=== PATIENT | male | born 1940 | race Caucasian/White ===

== ENCOUNTER 2025-01-10 13:13 | Emergency (ER) | payer MEDICARE, BC, SELFPAY ==
[2025-01-10] VITALS (32 sets, daily range): BP systolic 113–141; BP diastolic 69–89; PULSE 55–69; RESP 9–15; TEMP 36.2; O2SAT 88–100; BMI 21.7
--- OUTSIDE RECORDS SUMMARY | 2025-01-10 13:15 | XMS_ITS | Clinical Summary ---
Author Organization [facility] Address [address] [address] Phone Care Team Providers Care Straightener Hand Name Role Phone Krystian Viramontes MD Primary Care Provider [phone] Allergies No known active allergies Medications losartan (Cozaar) 50 MG tablet Take 50 mg by mouth one time a day. Active Multiple Vitamin (MULTI VITAMIN DAILY OR) Take by mouth. Activ e Magnesium Citrate 200 MG Tablet Take 250 mg by mouth. Active atorvaSTATin (Lipitor) 80 MG tablet Take 80 mg by mouth one time a day. Active ALBUTEROL SULFATE IN Inhale 90 mcg into the lungs. Active tamsulosin (Flomax) 0.4 MG 24 hour capsule Take 0.4 mg by mouth one time a day. Capsules should be swallowed whole; do not crush, chew, or open Active ipratropium-alb uterol (DUO-NEB) 0.5-2.5 (3) MG/3ML Solution Inhale 3 mL into the lungs two times a day. Active loratadine (Claritin) 10 MG capsule Take 10 mg by mouth as needed for Allergies. Take on an empty stomach. Active fluticasone furoate (Veramyst) 27.5 MCG/SPRAY nasal spray Instill 1 [place] nasally as needed for Rhinitis. Shake well before use; administer to both nostrils. Active montelukast (Singulair) 10 MG tablet Take 1 Tablet by mouth every evening. 31 Tablet 5 3 Active fluticasone-mario anterol (Breo Ellipta) inhaler 200-25 mcg/dose Inhale 1 Inhalation into the lungs one time a day. Rinse mouth after each use. 180 Each 3 Active ASPIRIN 81 OR Take 81 mg by mouth one time a day. 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 Legal Sex Male 3:18 PM SECURITY INSTALLATION TECHNICIAN Gender Identity Male 06/06/2022 1:44 PM SECURITY INSTALLATION TECHNICIAN Sexual Orientation Not on file Obstetrics History Last Filed Vital Signs Vital Sign Reading Time Taken Comments Blood Pressure 138/83 10/09/2023 12:30 PM CDT Pulse 80 10/09/2023 12:30 PM CDT Temperature 36.4 C (97.6 F) 10/09/2023 12:30 PM CDT Respiratory Rate 16 10/09/2023 12:30 PM CDT Oxygen Saturation 100% 10/09/2023 12:30 PM CDT Inhaled Oxygen Concentration - - Weight 85.3 kg (188 lb) 08/04/2022 2:42 PM SECURITY INSTALLATION TECHNICIAN Height 182.9 cm (6') 08/04/2022 2:42 PM SECURITY INSTALLATION TECHNICIAN Body Mass Index 25.5 08/04/2022 2:42 PM SECURITY INSTALLATION TECHNICIAN Plan of Treatment Health Maintenance Due Date Last Done Comments MEDICARE AWV 1940 PERTUSSIS (Standing Order) 1958 Pneumococcal Vaccine: 50+ yrs (Standing Order) (1 of 2 - PCV) 1958 Shingrix (Zoster recombinant) vaccine (Standing Order) (1 of 2) 1989 RSV Vaccination (60+ yrs) (Abrysvo/Arexvy) (1 - 1-dose 75+ series) 2014 COVID-19 Vaccine ( season) 2024 03/31/2023, 03/17/2022, 09/23/2021, Additional history exists TETANUS (Standing Order) 10/08/2033 10/09/2023 HPV Vaccine (Standing Order) Aged Out No longer eligible based on patient's age to complete this topic Hepatitis B Vaccine (Standing Order) Aged Out No longer eligible based on patient's age to complete this topic Insurance MEDICARE PART A & B [facility] OTHER [facility] MEDICARE PART A & B [place] Care Teams Straightener Hand Relationship Specialty Start Date End Date Krystian Viramontes MD [address] [phone] PCP - General Family Medicine 06/03/22
--- OUTSIDE RECORDS SUMMARY | 2025-01-10 13:15 | XMS_ITS | Clinical Summary ---
Author Organization [facility] Address [address] [place] [address] Care Team Providers Care Legal Document Specialist Name Role Phone Clinic, No Pcp Or Unavailable Unavailable Krystian Viramontes MD Primary Care Provider [phone] Allergies Active Allergy Reactions Criticality Noted Date Comments Beta-Blockers (Beta-Adrenergic Blocking Agts) Insomnia Comment: , Description: Sulfa (Sulfonamide Antibiotics) Other - Describe In Comment Field,Rash 05/16/2009 Comment: , Description: Medications multivitamin capsule Take 1 capsule by mouth once daily. 0 020 Active albuterol HFA (PRO-AIR; VENTOLIN; PROVENTIL) 90 mcg/actuation inhalerIndications:C hronic obstructive pulmonary disease, unspecified COPD type (HC) Inhale 2 Puffs by mouth every 4 hours if needed for Shortness Of Breath. 3 Each 3 024 Active albuterol-ipratropiu m (DUONEB) (2.5-0.5 mg) in 3 mL NEBULIZATION solutionIndications: Chronic obstructive pulmonary disease, unspecified COPD type (HC) Inhale 3 mL via a nebulizer three times daily. 270 mL 3 024 Active atorvastatin (LIPITOR) 80 mg tabletIndications:HT N (hypertension),Heart failure, unspecified HF chronicity, unspecified heart failure type (HC),Hyperlipidemia, unspecified hyperlipidemia type Take 1 Tablet (80 mg) by mouth once daily with evening meal. 90 Tablet 3 024 Active fluticasone (50 mcg per actuation) nasal solution (FLONASE)Indications :Severe persistent allergic asthma (HC) Inhale 1 Beason in both nostrils once daily. 16 g 11 Active fluticasone furoate-vilanteroL (Breo Ellipta) 200-25 mcg/dose inhalation powdererIndications: Heart failure, unspecified HF chronicity, unspecified heart failure type (HC) Inhale 1 Puff by mouth once daily. 180 Each 3 Active furosemide 40 mg tablet Take 40 mg by mouth once daily in the morning. Takes only as needed and takes potassium with it. Active POTASSIUM ORAL Take by mouth. Takes only as needed when taking Furosemide Active dexAMETHasone 2 mg tabletIndications:Wa ldenstrom's macroglobulinemia (HC) Take 1 Tablet (2 mg) by mouth once daily with a meal. 30 Tablet Active zanubrutinib (Brukinsa) 80 mg capsuleIndications:W aldenstrom's macroglobulinemia (HC) Take 3 Capsules (240 mg) by mouth once daily. 90 Capsule 3 Active Walker - 4 wheelsIndications:Fr equent falls,Weakness generalized Seated 4 wheel walker for weakness and frequent falls. For home use. Length of need: 99. 1 Each Active chlorhexidine (PERIDEX) 0.12 % solution 2024 Disconti nued(*Pa tient states no longer taking) clopidogreL (Plavix) 75 mg tabletIndications:Co ronary artery disease involving tejon coronary artery of tejon heart without angina pectoris Take 1 Tablet (75 mg) by mouth once daily. 90 Tablet 3 024 2024 Disconti nued(*Pa tient states no longer taking) cholecalciferol, vitamin D3, (VITAMIN D3 ORAL) Take by mouth. 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 Max acetaminophen dose: 4000mg in 24 hrs. 30 Tablet 2 025 2024 Disconti nued(*Pa tient states no longer taking) gabapentin 100 mg capsuleIndications:L umbar radiculopathy Take 2 Capsules (200 mg) by mouth three times daily. 180 Capsule 2 025 2024 Disconti nued(*George webber states no longer taking) zanubrutinib (Brukinsa) 80 mg capsuleIndications:W aldenstrom's macroglobulinemia (HC) Take 4 Capsules (320 mg) by mouth once daily. 120 Capsule 3 025 2024 Disconti nued(Reo rder (E-cance l not sent)) mirtazapine 7.5 mg tabletIndications:Wa ldenstrom's macroglobulinemia (HC) Take 1 Tablet (7.5 mg) by mouth at bedtime. 30 Tablet 3 025 2024 Disconti nued(*Pa lawanda states no longer taking) Walker - 4 wheelsIndications:Fr equent falls,Weakness generalized Seated 4 wheel walker for weakness and frequent falls. For home use. Length of need: 99. 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 From Oncology note: 09/11/2024 SPEP with a biclonal gammopathy with a large monoclonal peak 2.76 g/dL in the beta region and a small monoclonal peak 0.09 g/dL in the beta region. SIFE with complete IgM kappa and complete IgG lambda monoclonal proteins. IgM elevated 1,329.12, IgG/IgA low. SFLC kappa 15.10 / lambda 0.84 = 17.98 K:L ratio. LDH normal. BNP elevated 1028. 09/20/2024 bone marrow biopsy with a CD5-/CD10-/CD79b+ kappa light chain restricted favoring lymphoplasmacytic lymphoma, 70-80% cellularity with ~80% bone marrow involvement by lymphoma. Cytogenetics and MYD 88 pending. No aberrant plasma cells detected. No morphologic or flow cytometric evidence of of previously documented CLL. 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 01/27/2021 Heart failure 06/17/2020 Bronchitis, not specified as acute or chronic Chronic sinusitis Cardiomyopathy Waldenstrom macroglobulinemia Lymphoma Resolved Problems Problem Noted Date Diagnosed Date Resolved Date Cold agglutinin disease 06/30/202312/05 Encounters Date Type Department Care Team Description 01/10/2025 Nurse Triage [facility] [address] [place] [address] Krystian Viramontes MD Diarrhea 12/28/2024 3:05 PM CDT Office Visit [facility] [address] [place] [address] Bhavin Pagan MD Establish Care (Medication Management/Would like order/prescription for a walker/Has been having several falls (end of September to middle of November) had 13 falls. No falls since. Gets lightheaded and dizzy before he fell. /Can't walk further than 20-30 feet/Has no energy ) 12/28/2024 Travel 12/26/2024 Travel 12/24/2024 Telephone [facility] [address] [place] [address] Mireya Herrera MD Care Coordination (Lab Orders) 12/21/2024 Refill [facility] [address] [place] [address] Mireya Herrera MD Refill Request 12/20/2024 12:30 PM CDT Office Visit [facility] [address] [place] [address] Mireya Herrera MD Cancer (CLL) 12/20/2024 Travel 12/17/2024 4:00 PM CDT Orders Only [facility] [address] [place] [address] Lab, [place] [facility] 12/17/2024 Travel 12/10/2024 Telephone [facility] [address] [place] [address] Mireya Herrera MD Care Coordination (Lab orders) 11/29/2024 9:00 AM CDT Office Visit [facility] [address] [place] [address] Mireya Herrera MD Cancer (Waldenstrom's Macroglobulinemia) 11/29/2024 Travel 11/27/2024 Travel 11/22/[address] [address] Mireya Herrera MD Care Coordination 11/15/2024 3:00 PM CDT Office Visit [address] [address] Mireya Herrera MD Hematologic Disorder (Waldenstrom's macroglobulinemia) 11/15/2024 Travel 11/11/2024 Travel 11/07/2024 11:30 AM CDT Orders Only [facility] [id number] [place] [id number] Lab, [facility] 11/07/2024 10:30 AM CDT Office Visit [address] [address] Marta Seth DPM Toenail (Jc toenail trim) 11/07/2024 Travel 11/04/2024 Travel 11/01/2024 2:30 PM CDT Office Visit [address] [address] Mireya Herrera MD Cancer (Waldenstrom's macroglobulinemia) 10/31/2024 Travel 10/25/2024 11:39 AM CDT - 10/25/2024 2:21 PM CDT Emergency [facility] [address] [place] [address] Yared Morton PA Lightheadedness (Primary Dx); Waldenstrom's disease (HC) Discharge Disposition: Home Self Care 10/24/2024 Telephone [facility] [address] [place] [address] Mireya Herrera MD Concerns 10/18/2024 2:00 PM CDT Office Visit [facility] [address] [place] [address] Mireya Herrera MD 10/18/2024 11:45 AM CDT Office Visit [facility] [address] [place] [address] Beto Durant MD Heart Problem (6 WEEK F/U) 10/18/2024 Travel 10/17/2024 Travel 10/13/2024 Travel from Last 3 Months Immunizations Immunization Administration Dates Next Due COVID-19 VACCINE COMIRNATY ( PFIZER-BIONTECH 30MCG/0.3ML) 12YO+ PFS 04/12/2024 COVID-19 vaccine (Moderna 10 0mcg/0.5mL) PF, MDV 03/11/2021,09/04/2020,08/06/2020 COVID-19 vaccine (Moderna 50 mcg/0.5mL) 12YO+ BIVALENT PF, MDV 03/17/2022 COVID-19 vaccine (Moderna Ezequiel maria antonia 50mcg/0.25mL) PF, MDV 09/23/2021 Influenza RIV4 (Age 18+ Years) PRESERV FREE 03/06,03/09/2021,03/06/2020 Influenza, High-dose Inactivated 03/14/2024 Influenza, High-dose Quadriv alent Inactivated 03/31/2023 Pneumococcal Poly,23-Valent (Pneumovax) 10/10/19 21 Pneumococcal conj 13-Valent (Prevnar 13) 017 Td, Preservative Free (age >= 7 Years) Tdap 10/09/2023 Tdap, Unspecified 08/03/2016 Zoster (Shingrix-RZV, recombinant) 06/04/2024, Zoster, Unspecified Formulation 08/26/2008 Family History Medical History Relation Name Comments Heart Disease Father Arthritis Mother Asthma Paternal Grandmother Diabetes Sister Hypertension Sister Relation Name Status Comments Father Mother Paternal Grandmother Sister Social History Tobacco Use Types Packs/Day Years Used Date Smoking Tobacco: Never Smokeless Tobacco: Never Tobacco Cessation:Counseling Given: Not Answered Alcohol Use Standard Drinks/Week Comments Not Currently 0 (1 standard drink = 0.6 oz pur e alcohol) 1 beer monthly PHQ-2 Answer Date Recorded PHQ-2 TOTAL SCORE 2 01/30/2024 Social Connections Answer Date Recorded Do you often feel lonely or isolated from those around you? 0 05/03/2024 Financial Resource Strain Answer Date R ecorded Difficulty of Paying Living Expenses 3 05/04/2024 Difficulty of Paying Living Expenses Not on file 05/04/2024 Food Insecurity Answer Date Recorded Do you worry your food will run out before you are able to buy more? 1 05/03/2024 Transportation Needs Answer Date Record ed Does lack of transportation keep you from medica l appointments? 1 05/03/2024 Does lack of transportation keep you from work, meetings or getting things that you need? 1 05/03/2024 Housing Stability Answer Date Recorded What is your housing situation today? 1 05/03/2024 Interpersonal Safety Answer Date Record ed Are you being hit, kicked, p ushed or yelled at (see row info)? No 10/25/2024 Interpersonal Safety Abuse 12 - 18 Not on file 10/25/2024 Interpersonal Safety Ambulatory Vulnerability No t on file 10/25/2024 Utilities Answer Date Recorded Do you have trouble paying f or utilities (for example, heat, electricity, water, phone)? 1 05/03/2024 Sex and Gender Information Value Date Recorded Sex Assigned at Not on file Legal Sex Male 6:16 AM CORPORATE DIRECTOR Gender Identity Not on file Sexual Orientation Not on file Occupation Industry Job Start Date Job End Date retired Not on file Not on file Not on file Obstetrics History Last Filed Vital Signs Vital Sign Reading Time Taken Comments Blood Pressure 114/70 12/28/2024 3:16 PM CDT Pulse 63 12/28/2024 3:16 PM CDT Temperature 36.4 C (97.5 F) 11/15/2024 3:01 PM CDT Respiratory Rate 20 11/15/2024 3:01 PM CDT Oxygen Saturation 100% 12/28/2024 3:16 PM CDT Inhaled Oxygen Concentration - - Weight 80.7 kg (178 lb) 10/25/2024 10:31 AM CDT Height 182.9 cm (6') 10/25/2024 10:31 AM CDT Body Mass Index 24.14 10/25/2024 10:31 AM CDT Plan of Treatment Upcoming Encounters Date Type Department Care Team (Late st Contact Info) Description 01/17/2025 2:30 PM CDT Office Visit [facility] [address] [place], [place] [id number] Mireya Herrera MD [address] [place] [address] 03/18/2025 10:30 AM CDT Orders Only [address] [address] Lab, [facility] 03/18/2025 11:00 AM CDT Office Visit [address] [phone] Sierra Dozier, PHYSICIAN COMPENSATION ANALYST [address] [place], [place] [phone] Health Maintenance Due Date Last Done Comments RSV vaccine for adults or (1 - 1-dose 75+ series) 2014 COVID-19 vaccine series (8 - Moderna risk season) 2024 04/12/2024, 03/31/2023, 03/17/2022, Additional history exists Depression screening for age 12+ 01/29/2025 01/30/2024, 03/02/2022, 12/10/2020 Medicare Wellness for age 65+ 01/30/2025 01/30/2024 Influenza Vaccine (#1) 2025 , 03/17/2022, 03/09/2021, Additional history exists BMI (ht and wt on same day) for age 18+ 09/20/2025 09/20/2024, 04/12/2024, 03/14/2024, Additional history exists Tetanus booster 10/08/2033 10/09/2023, 05/0 10/2023, 08/03/2016 Pneumococcal series for age 50+ Completed 10/09/2020, 08/03/2016 Zoster (shingles) series for age 50+ Completed 06/04/2024, 03/14/2024 Hepatitis B series for 19+ Aged Out N o longer eligible based on patient's age to complete this topic Procedures Procedure Name Priority Date/Time Associated Diagnosis Comments CBC WITH AUTO DIFFERENTIAL Routine 12/17/2024 4:14 PM CDT Waldenstrom's macroglobulinemia (HC) COMP METABOLIC PANEL Routine 12/17/2024 4:14 PM CDT Waldenstrom's macroglobulinemia (HC) IMMUNOGLOBULINS,IGG/ A/M Routine 12/17/2024 4:14 PM CDT Waldenstrom's macroglobulinemia (HC) VISCOSITY BLOOD Routine 12/17/2024 4:14 PM CDT Waldenstrom's macroglobulinemia (HC) LD,TOTAL Routine 12/17/2024 4:14 PM CDT Waldenstrom's macroglobulinemia (HC) ELP AND FREE LIGHT CHAINS W REFLEX, BLOOD Routine 12/17/2024 4:13 PM CDT Waldenstrom's macroglobulinemia (HC) IMMUNOFIXATION,SERUM Routine 12/17/2024 4:13 PM CDT Abnormal 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) IMMUNOFIXATION,SERUM Routine 11/07/2024 10:25 AM CDT Abnormal 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) TYPE & SCREEN STAT 10/25/2024 12:13 PM CDT CBC WITH AUTO DIFFERENTIAL STAT 10/25/2024 12:10 PM CDT PRO-BNP STAT 10/25/2024 12:10 PM CDT URIC ACID STAT 10/25/2024 12:10 PM CDT PHOSPHORUS STAT 10/25/2024 12:10 PM CDT PROCALCITONIN STAT 10/25/2024 12:10 PM CDT BASIC METABOLIC PANEL STAT 10/25/2024 12:10 PM CDT CBC WITH AUTO DIFFERENTIAL STAT 10/25/2024 12:10 PM CDT EKG 12 LEAD STAT 10/25/2024 11:59 AM CDT from Last 3 Months Results * VISCOSITY BLOOD (12/17/2024 4:14 PM CDT) VISCOSITY, SERUM 1.9 1.5 - 1.9 Relative to H2O [facility], Blood BLOOD SPECIMEN / Unknown 12/17/2024 4:14 PM CDT 12/17/2024 4:14 PM CDT Mireya Herrera MD SEND OUTS Final Result [facility] [address] [place] [address], [facility], [address] [place] [address] * (ABNORMAL) IMMUNOGLOBULINS,IGG/A/M (12/17/2024 4:14 PM CDT) [facility] IMMUNOGLOBULIN A 21(L) 70 - 320 mg/dL [facility] IMMUNOGLOBULIN G 466(L) 600 - 1,540 mg/dL [facility] IMMUNOGLOBULIN M 2,038(H) 50 - 300 mg/dL [facility] Blood BLOOD SPECIMEN / Unknown 12/17/2024 4:14 PM CDT 12/17/2024 4:14 PM CDT Mireya Herrera MD CHEMISTRY Final Result [facility] [address] [place] [address], [place] [phone] [facility] [address] [place] [address] * LD,TOTAL (12/17/2024 4:14 PM CDT) [facility] LD 178 120 - 250 U/L [facility] Blood BLOOD SPECIMEN / Unknown 12/17/2024 4:14 PM CDT 12/17/2024 4:14 PM CDT Mireya Herrera MD CHEMISTRY Final Result [facility] [address] [place] [address], [place] [phone] [facility] [address] [place] [address] * (ABNORMAL) CBC AND DIFFERENTIAL (12/17/2024 4:14 PM CDT) [facility] WHITE BLOOD CELL COUNT 6.1 3.8 - 10.8 Thousand/u L [facility] RED BLOOD CELL COUNT 3.80(L) 4.20 - 5.80 Million/uL [facility] HEMOGLOBIN 10.9(L) 13.2 - 17.1 g/dL [facility] HEMATOCRIT 33.8(L) 38.5 - 50.0 % [facility] MCV 88.9 80.0 - 100.0 fL [facility] MCH 28.7 27.0 - 33.0 pg [facility] MCHC 32.2 32.0 - 36.0 g/dL [facility] Comment: For adults, a slight decrease in the calculated MCHC value (in the range of 30 to 32 g/dL) is most likely not clinically significant; however, it should be interpreted with caution in correlation with other red cell parameters and the patient's clinical condition. RDW 15.9(H) 11.0 - 15.0 % [facility] PLATELET COUNT 131(L) 140 - 400 Thousand/u L [facility] MPV 13.1(H) 7.5 - 12.5 fL [facility] ABSOLUTE NEUTROPHILS 4,099 1,500 - 7,800 cells/uL [facility] ABSOLUTE LYMPHOCYTES 1,147 850 - 3,900 cells/uL [facility] ABSOLUTE MONOCYTES 647 200 - 950 cells/uL [facility] ABSOLUTE EOSINOPHILS 177 15 - 500 cells/uL [facility] ABSOLUTE BASOPHILS 31 0 - 200 cells/uL [facility] NEUTROPHILS 67.2 % [facility] LYMPHOCYTES 18.8 % [facility] MONOCYTES 10.6 % [facility] EOSINOPHILS 2.9 % [facility] BASOPHILS 0.5 % [facility] Blood BLOOD SPECIMEN / Unknown 12/17/2024 4:14 PM CDT 12/17/2024 4:14 PM CDT Mireya Herrera MD HEMATOLOGY Final Result [email or web address] [address] [place] [address], [facility] [address] [place] [address] * (ABNORMAL) COMP METABOLIC PANEL (12/17/2024 4:14 PM CDT) [facility] GLUCOSE 71 65 - 99 mg/dL [facility] om[facility] Comment: Fasting reference interval UREA NITROGEN (BUN) 25 7 - 25 mg/dL [facility] CREATININE 1.68(H) 0.70 - 1.22 mg/dL [facility] EGFR 40(L) > OR = 60 mL/min/1.7 3m2 [facility] BUN/CREATININE RATIO 15 6 - 22 (calc) [facility] SODIUM 139 135 - 146 mmol/L [facility] POTASSIUM 4.1 3.5 - 5.3 mmol/L [facility] CHLORIDE 103 98 - 110 mmol/L [facility] CARBON DIOXIDE 26 20 - 32 mmol/L [facility] CALCIUM 9.4 8.6 - 10.3 mg/dL [facility] PROTEIN, TOTAL 6.5 6.1 - 8.1 g/dL [facility] ALBUMIN 3.3(L) 3.6 - 5.1 g/dL [facility] GLOBULIN 3.2 1.9 - 3.7 g/dL (calc) [facility] ALBUMIN/GLOBULIN RATIO 1.0 1.0 - 2.5 (calc) [facility] BILIRUBIN, TOTAL 1.8(H) 0.2 - 1.2 mg/dL [facility] ALKALINE PHOSPHATASE 87 35 - 144 U/L [facility] AST 17 10 - 35 U/L [facility] ALT 19 9 - 46 U/L [facility] Blood BLOOD SPECIMEN / Unknown 12/17/2024 4:14 PM CDT 12/17/2024 4:14 PM CDT Mireya Herrera MD CHEMISTRY Final Result [facility] [address] [place] [address], [facility] [address] [place] [address] * (ABNORMAL) ELP AND FREE LIGHT CHAINS W REFLEX, BLOOD (12/17/2024 4:13 PM CDT) ELP,ALBUMIN 3.10(L) 3.31 - 5.31 g/dL 12/19/2024 2:46 PM CDT [facility] ELP,ALPHA 1 0.44(H) 0.19 - 0.42 g/dL 12/19/2024 2:46 PM CDT [facility] ELP,ALPHA 2 0.85 0.44 - 1.03 g/dL 12/19/2024 2:46 PM CDT [facility] ELP,GAMMA 0.34(L) 0.59 - 1.46 g/dL 12/19/2024 2:46 PM CDT [facility] ELP,BETA 1.36(H) 0.52 - 1.05 g/dL 12/19/2024 2:46 PM CDT [facility] MONOCLONAL PEAK 1 0.82 <=0.00 g/dL 12/19/2024 2:46 PM CDT [facility] MONOCLONAL PEAK 2 0.08 <=0.00 g/dL 12/19/2024 2:46 PM CDT [facility] KAPPA FREE LIGHT CHAIN, S 7.87(H) 0.33 - 1.94 mg/dL 12/19/2024 2:46 PM CDT [facility] LAMBDA FREE LIGHT CHAIN, S 1.10 0.57 - 2.63 mg/dL 12/19/2024 2:46 PM CDT [facility] KAPPA/LAMBDA FLC RATIO 7.15(H) 0.26 - 1.65 12/19/2024 2:46 PM CDT [facility] ELP INTERP,SERUM Interval study shows a decrease in magnitude of previously identified monoclonal peak. Previous Study: 2.76/0.09 gm/dL on 09/11/2024. Interpreted and electronically signed by: Neo Sotelo MD 12/19/2024 2:46 PM CDT [facility] PROTEIN,TOTAL 6.1 6.0 - 8.0 g/dL 12/19/2024 2:46 PM CDT [facility] Blood BLOOD SPECIMEN / Unknown [facility] / Unknown 12/17/2024 4:13 PM CDT 12/17/2024 4:13 PM CDT us Mireya Herrera MD CHEMISTRY Final Result [facility] [address] [place] [address], [place] * (ABNORMAL) IMMUNOFIXATION,SERUM (12/17/2024 4:13 PM CDT) Only the most recent of2 resultswithin the time period is included. IGG 396.44(L) 610.30 - 1,616.00 mg/dL 12/19/2024 2:45 PM CDT [facility] IGA 27.50(L) 84.50 - 499.00 mg/dL 12/19/2024 2:45 PM CDT [facility] IGM 1,252.52(H) 35.00 - 242.00 mg/dL 12/19/2024 2:45 PM CDT [facility] IFIX INTERP,SERUM Immunofixation on serum shows previously identified biclonal pattern complete monoclonal protein with IgM kappa and trace IgG lambda specificities with no free light chains detected. Interpreted and electronically signed by: Neo Sotelo MD 12/19/2024 2:45 PM CDT [facility] Blood BLOOD SPECIMEN / Unknown [facility] / Unknown 12/17/2024 4:13 PM CDT 12/17/2024 4:13 PM CDT Sierra Dozier PHYSICIAN COMPENSATION ANALYST CHEMISTRY Final Re sult [facility] [address] [place] [address], * TYPE AND SCREEN ONLY (10/25/2024 12:13 PM CDT) Pathologist [facility] ABORH B Rh Positive 10/25/2024 1:42 PM CDT [facility] BLOOD BANK ANTIBODY SCREEN Negative Negative 10/25/2024 1:42 PM CDT [facility] BLOOD BANK SPECIMEN EXPIRATION DATE/TIME 10/28/24 23:59 10/25/2024 1:42 PM CDT [facility] BLOOD BANK Blood BLOOD SPECIMEN / Unknown Non-Lab Venipuncture / Unknown 10/25/2024 12:13 PM CDT 10/25/2024 12:22 PM CDT Yared MIRANDA BLOOD BANK Final Result [facility] BLOOD BANK [address] [place] [address] * (ABNORMAL) CBC WITH AUTO DIFFERENTIAL (10/25/2024 12:10 PM CDT) [facility] WHITE BLOOD COUNT 5.4 4.5 - 11.0 thou/cu mm 10/25/2024 12:25 PM CDT [facility] RED BLOOD COUNT 3.99(L) 4.30 - 5.90 mil/cu mm 10/25/2024 12:25 PM CDT [facility] HEMOGLOBIN 11.1(L) 13.5 - 17.5 g/dL 10/25/2024 12:25 PM CDT [facility] HEMATOCRIT 33.3(L) 37.0 - 53.0 % 10/25/2024 12:25 PM CDT [facility] MCV 84 80 - 100 fL 10/25/2024 12:25 PM CDT [facility] MCH 27.8 26.0 - 34.0 pg 10/25/2024 12:25 PM CDT [facility] MCHC 33.3 32.0 - 36.0 g/dL 10/25/2024 12:25 PM [facility] RDW 17.4(H) 11.5 - 15.5 % 10/25/2024 12:25 PM [facility] PLATELET COUNT 155 140 - 440 thou/cu mm 10/25/2024 12:25 PM [facility] MPV 11.4(H) 6.5 - 11.0 fL 10/25/2024 12:25 PM [facility] NRBC 0.0 % 10/25/2024 12:25 PM [facility] ABS NRBC 0.0 thou /cu mm 10/25/2024 12:25 PM [facility] % NEUT 63.8 % 10/25/2024 12:25 PM [facility] % LYMPH 17.2 % 10/25/2024 12:25 PM [facility] % MONO 12.3 % 10/25/2024 12:25 PM [facility] % EOS 5.6 % 10/25/2024 12:25 PM [facility] % BASO 0.9 % 10/25/2024 12:25 PM [facility] % IMMATURE GRAN (METAS,MYELOS,AK OS) 0.2 % 10/25/2024 12:25 PM [facility] LABORATORY ABSOLUTE NEUTROPHILS 3.4 1.7 - 7.0 thou/cu mm 10/25/2024 12:25 PM [facility] ABSOLUTE LYMPHOCYTES 0.9 0.9 - 2.9 thou/cu mm 10/25/2024 12:25 PM [facility] ABSOLUTE MONOCYTES 0.7 <0.9 thou/cu mm 10/25/2024 12:25 PM [facility] ABSOLUTE EOSINOPHILS 0.3 <0.5 thou/cu mm 10/25/2024 12:25 PM [facility] ABSOLUTE BASOPHILS 0.1 <0.3 thou/cu mm 10/25/2024 12:25 PM [facility] ABSOLUTE IMMATURE GRANULOCYTES(MET ,MYELOS,PROS) 0.0 <0.3 thou/cu mm 10/25/2024 12:25 PM [facility] Blood BLOOD SPECIMEN / Unknown Non-Lab Venipuncture / Unknown 10/25/2024 12:10 PM CDT 10/25/2024 12:22 PM CDT Yared MIRANDA HEMATOLOGY Final Result [facility] SENDOUT [place] [address] [id number] [address] [place] [address] * PROCALCITONIN (10/25/2024 12:10 PM CDT) PROCALCITONIN 0.08 ng/ml 10/25/2024 12:58 PM CDT [facility] Blood BLOOD SPECIMEN / Unknown Non-Lab Venipuncture / Unknown 10/25/2024 12:10 PM CDT 10/25/2024 12:22 PM CDT Narrative [facility] - 10/25/2024 12:58 PM CDT Procalcitonin for initial assessment of Lower Respiratory Tract Infection: Results Interpretation <0.10 ng/mL Antibiotic therapy strongly discoraged. Indicates absent of bacterial infection. * 0.10 - 0.25 ng/mL Antibiotic therapy discouraged. Bacterial infection unlikely. * 0.26 - 0.50 ng/mL Antibiotic therapy encouraged. Bacterial infection possible. >0.50 ng/mL Antibiotic therapy strongly encouraged. Suggestive of presence of bacterial infection. *Antibiotic therapy should be considered regardless of PCT result if the patient is clinically unstable, is at high risk for adverse outcome, has strong evidence of bacterial pathogen, or the clinical context indicates antibiotic therapy is warranted. If antibiotics are withheld, reassess if symptoms persist/worsen and/or repeat PCT measurement within 6-24 hours. In order to assess treatment success and to support a decision to discontinue antibiotic therapy, follow up samples should be tested once every 1-2 days, based upon physician discretion taking into account patient's evolution and progress. Procalcitonin for initial assessment of severe sepsis risk: Results Interpretation <0.5 ng/ml A PCT level below 0.5 ng/ml on the first day of ICU admission is associated with a low risk for progression to severe sepsis and/or septic shock. > 2.0 ng/mL A PCT level above 2.0 ng/mL on the first day of ICU admission is associated with a high risk for progression to severe sepsis and/or septic shock. Note: Concentrations < 0.5 ng/mL do not exclude an infection, on account of localized infections (without systemic signs) which can be associated with such low concentrations, or a systemic infection in its initial stages(< 6 hours). Furthermore, increased procalcitonin can occur without infection. PCT concentrations between 0.5 and 2.0 ng/mL should be interpreted taking into account the patient's history. It is recommended to retest PCT within 6-24 hours if any concentrations < 2 ng/mL are obtained. Yared MIRANDA SEND OUTS Final Result Performing Organization Address City/[facility]/ZIP Co de Phone Number [facility] SENDOUT INTERNAL ZIP [phone] [place] [phone] * (ABNORMAL) URIC ACID (10/25/2024 12:10 PM CDT) URIC ACID 7.1(H) 3.4 - 7.0 mg/dL 10/25/2024 12:58 PM CDT [facility] Blood BLOOD SPECIMEN / Unknown Non-Lab Venipuncture / Unknown 10/25/2024 12:10 PM CDT 10/25/2024 12:22 PM CDT Yared MIRANDA CHEMISTRY Final Result Performing Organization Address [facility] Co de Phone Number [facility] SENDOUT INTERNAL ZIP [phone] [place] [phone] * PHOSPHORUS (10/25/2024 12:10 PM CDT) PHOSPHORUS 3.8 2.5 - 4.5 mg/dL 10/25/2024 12:58 PM CDT [facility] Blood BLOOD SPECIMEN / Unknown Non-Lab Venipuncture / Unknown 10/25/2024 12:10 PM CDT 10/25/2024 12:22 PM CDT Result [facility] us Yared MIRANDA CHEMISTRY Final Result Performing Organization Address [facility] Co de Phone Number [facility] SENDOUT INTERNAL ZIP [phone] [place] [phone] * (ABNORMAL) PRO-BNP (10/25/2024 12:10 PM CDT) PRO-BNP 9,557(H) <450 pg/mL 10/25/2024 12:58 PM CDT [facility] Blood BLOOD SPECIMEN / Unknown Non-Lab Venipuncture / Unknown 10/25/2024 12:10 PM CDT 10/25/2024 12:22 PM CDT [facility] - 10/25/2024 12:58 PM CDT The following cut-points have been suggested for the use of proBNP for the diagnostic evaluation of heart failure (HF) in patient with acute dyspnea. Patients with eGFR >= 60 Diagnosis (rule in CHF) <50 Years Old 450 pg/mL 50 - 75 Years Old 900 pg/mL >75 Years Old 1800 pg/mL Exclusion (rule out CHF) Age Independent 300 pg/mL A cutoff of 1200 pg/mL for patients with an eGFR <60 yields a diagnostic sensitivity of 89% and specificity of 72% for acute congestive heart failure. us Yared MIRANDA SEND OUTS Final Result [facility] SENDOUT INTER[place] ZIP [address] [place] [phone] * (ABNORMAL) BASIC METABOLIC PANEL (10/25/2024 12:10 PM CDT) SODIUM 138 136 - 145 mmol/L 10/25/2024 12:58 PM CDT [facility] POTASSIUM 3.9 3.5 - 5.1 mmol/L 10/25/2024 12:58 PM CDT [facility] CHLORIDE 100 98 - 107 mmol/L 10/25/2024 12:58 PM CDT [facility] CO2,TOTAL 26 22 - 29 mmol/L 10/25/2024 12:58 PM T [facility] ANION GAP 12 5 - 18 10/25/2024 12:58 PM T [facility] GLUCOSE 89 70 - 99 mg/dL 10/25/2024 12:58 PM T [facility] CALCIUM 10.1 8.8 - 10.4 mg/dL 10/25/2024 12:58 PM [facility] Comment: Reference ranges for this test were updated on 04/10/2024 to reflect our healthy population more accurately. Reference range changes are not retroactively applied to results, but previous results using the same methodology can be interpreted in the context of the new reference range. BUN 22 8 - 23 mg/dL 10/25/2024 12:58 PM [facility] CREATININE 1.52(H) 0.70 - 1.20 mg/dL 10/25/2024 12:58 PM [facility] BUN/CREAT RATIO 14 10 - 20 12:58 PM [facility] eGFR 45(L) >90 mL/min/1. 73m2 10/25/2024 12:58 PM [facility] Comment:As of 2021, eG FR is calculated by the CKD-EPI creatinine equation without race adjustment. eGFR can be influenced by muscle mass, exercise, and diet. The reported eGFR is an estimation only and is only applicable if the renal function is stable. Blood BLOOD SPECIMEN / Unknown Non-Lab Venipuncture / Unknown 10/25/2024 12:10 PM CDT 10/25/2024 12:22 PM CDT Yared MIRANDA CHEMISTRY Final Result [facility] SENDOUT [place] [id number] [address] [place] [address] * EKG 12 LEAD (10/25/2024 11:59 AM CDT) Interpretation Atrial fibrillation with a competing junctional pacemaker Right bundle branch block Left posterior fascicular block Bifascicular block Inferior infarct , age undetermined Anteroseptal infarct , age undetermined T wave abnormality, consider lateral ischemia Abnormal ECG No previous ECGs available BEYOND NOW Ventricular Rate 73 BPM BEYOND NOW Atrial Rate 97 BPM BEYOND NOW P-R Interval ms BEYOND NOW QRS Duration 176 ms BEYOND NOW QT 516 ms BEYOND NOW QTc 568 ms BEYOND NOW P [place] degrees BEYOND NOW R [place] 111 degrees BEYOND NOW T [place] -41 degrees BEYOND NOW 10/25/2024 11:5 9 AM CDT 10/26/2024 9:32 AM CDT Yared Flower Radha Selene MIRANDA EKG ORD Final Result [facility] NOW [place], [place] from Last 3 Months Insurance MEDICARE PROVIDER BASED [facility] MEDICARE PART A HB ONLY MEDICARE PART B HB ONLY MEDICARE PB ONLY BLUE [place] Care Teams Legal Document Specialist Relationship Specialty Start Date End Date Krystian Viramontes MD [address] [place] [address] PCP - General Family Practice 11/27/20 Clinic, No Pcp Or . 11/27/15
[2025-01-10] MEDS: LACTATED RINGERS 1000 ML 1,000 ML IV ×2 (14:22→16:49)
[2025-01-10 14:34] LABS: Hematocrit 35.3 % (37.0-53.0); Hemoglobin* 11.2 gm/dL (13.5-17.5); Immature Granulocytes Abs Auto 0.00 K/uL (0.00-0.30); Immature Granulocytes Pct Auto 0.0 %; Lymphocytes Absolute Auto 1.00 K/uL (0.90-2.90); Mean Corpuscular HGB Conc 32 gm/dL (32-36); Mean Corpuscular Hemoglobin 29 pg (26-34); Mean Corpuscular Volume 90 fL (80-100); RDW Coefficient of Variation % 16.2 % (11.5-15.5); Red Blood Count 3.92 m/uL (4.30-5.90); White Blood Count* 5.65 K/uL (4.50-11.00)
[2025-01-10 14:44] LABS: Slide Review Reflex No
[2025-01-10 14:46] LABS: Albumin* 3.5 g/dL (3.3-5.0); Chloride* 102 mmol/L (96-114); Potassium* 4.2 mmol/L (3.6-5.1); Sodium* 137 mmol/L (135-149)
--- NOTE | 2025-01-10 14:47 | ED_ITS ---
HPI - Weakness General Date Seen: 01/10/25 Chief complaint: Weakness Stated complaint: Weakness, dehydration Time Seen by Provider: 01/10/25 13:40 Source: patient Mode of arrival: ambulatory Limitations: no limitations History of Present Illness HPI Narrative: Patient is a an 84-year-old male with history of Waldenstrom macroglobulinemia currently taking brukinsa presenting for diarrhea and weakness. Patient was diagnosed with his lymphoma earlier this year and was started on his cancer medication. Initially was on 4 pills daily but that was causing too many side effects and he was dropped down to 2 pills. He was doing well and 2 pills they recheck his labs 4 weeks ago and showed much improvement. His oncologist want to try him on 3 pills but that started to cause diarrhea in the patient so he was drop back down to 2. The diarrhea since then has persisted and he is going multiple times a day. Has not been on any recent antibiotics. Denies fevers or chills. States he feels very fatigued is concerned he is getting dehydrated from all the diarrhea. States he has also had decreased oral intake as he does does not have the mid wilkerson to eat despite feeling hungry. Is not having chest pain, shortness of breath, nausea, vomiting, headache, vision changes, numbness. Has been taking Imodium which she states does help but does not feel comfortable taking it constantly. Related Data Home Medications ?Medication ?Instructions ?Recorded ?Confirmed atorvastatin 80 mg tablet 80 mg PO DAILY 01/10/25 0812/28 zanubrutinib 80 mg capsule 160 mg PO DAILY 01/10/25 (Brukinsa) Allergies Allergy/AdvReac Type Severity Reaction Status Date / Time Sulfa (Sulfonamide AdvReac Intermediate Vomiting Verified 01/10/25 13:21 Antibiotics) and Diarrhea Beta-Blockers AdvReac Mild Hyper Verified 01/10/25 13:21 (Beta-Adrenergic Bloc Review of Systems Status of ROS: Reports: 10 or more systems reviewed and unremarkable except as noted in History and below Exam Narrative: Exam Narrative: Const: Well-nourished, Well-developed, in mild distress Eyes: PERRL, no conjunctival injection, and symmetrical lids HENT: Atraumatic external nose and ears. Moist mucous membranes. Neck: Symmetric, trachea midline, No thyromegaly. CVS: RRR, No murmurs or gallops. Peripheral pulses 2+ and equal in all extremities RESP: Unlabored respiratory effort. Clear to auscultation bilaterally. GI: Nontender/Nondistended, No rebound or guarding. MSK:Extremities w/o deformity, Normal Active ROM Skin: Warm, Dry. No rashes or lesions. Neuro: Normal Muscle tone, No focal neurological deficits. Psych: Awake, Alert, & Oriented x3. Appropriate mood and affect. Const: Vital Signs, click to edit/add: Vital Signs - 24 hr 01/10/25 13:17 01/10/25 13:57 01/10/25 14:00 Temperature 97.1 F L Pulse Rate 62 Pulse Rate [Pulse Oximeter] 63 Respiratory Rate 14 Blood Pressure Blood Pressure [Ri ght Upper Arm] 113/77 Pulse Oximetry 97 99 [facility] 01/10/25 14:20 01/10/25 14:26 01/10/25 14:30 Temperature Pulse Rate 59 L 59 L 61 Pulse Rate [Pulse Oximeter] Respiratory Rate Blood Pressure 120/73 Blood Pressure [Ri ght Upper Arm] Pulse Oximetry 99 98 99 [facility] 01/10/25 14:31 01/10/25 14:32 01/10/25 14:45 Temperature Pulse Rate 57 L 60 59 L Pulse Rate [Pulse Oximeter] Respiratory Rate Blood Pressure 113/69 Blood Pressure [Ri ght Upper Arm] Pulse Oximetry 100 100 98 [facility] 01/10/25 15:30 01/10/25 15:31 01/10/25 15:32 Temperature Pulse Rate 66 62 Pulse Rate [Pulse Oximeter] Respiratory Rate 11 L Blood Pressure 141/89 H Blood Pressure [Ri ght Upper Arm] Pulse Oximetry 95 Oxygen Delivery Sc thod 01/10/25 15:45 01/10/25 16:00 01/10/25 16:02 Temperature Pulse Rate 65 62 62 Pulse Rate [Pulse Oximeter] Respiratory Rate 14 12 14 Blood Pressure 123/82 Blood Pressure [Ri ght Upper Arm] Pulse Oximetry 100 98 100 Oxygen Delivery Sc thod 01/10/25 16:15 01/10/25 16:30 01/10/25 16:31 Temperature Pulse Rate 61 59 L 58 L Pulse Rate [Pulse Oximeter] Respiratory Rate 15 Blood Pressure 124/77 Blood Pressure [Ri ght Upper Arm] Pulse Oximetry 100 88 99 Oxygen Delivery Me thod 01/10/25 16:32 01/10/25 16:45 01/10/25 17:00 Temperature Pulse Rate 55 L 60 69 Pulse Rate [Pulse Oximeter] Respiratory Rate 10 L 12 Blood Pressure Blood Pressure [Ri ght Upper Arm] Pulse Oximetry 100 98 Oxygen Delivery Me thod 01/10/25 17:01 01/10/25 17:15 01/10/25 17:30 Temperature Pulse Rate 63 61 64 Pulse Rate [Pulse Oximeter] Respiratory Rate 13 Blood Pressure 128/88 Blood Pressure [Ri ght Upper Arm] Pulse Oximetry 100 96 99 Oxygen Delivery Me thod 01/10/25 17:31 01/10/25 17:45 01/10/25 18:00 Temperature Pulse Rate 65 66 63 Pulse Rate [Pulse Oximeter] Respiratory Rate 9 L Blood Pressure 131/81 Blood Pressure [Ri ght Upper Arm] Pulse Oximetry 100 92 98 Oxygen Delivery Me thod 01/10/25 18:02 01/10/25 18:03 01/10/25 18:15 Temperature Pulse Rate 68 63 62 Pulse Rate [Pulse Oximeter] Respiratory Rate 13 15 Blood Pressure 137/80 Blood Pressure [Ri ght Upper Arm] Pulse Oximetry 98 100 98 Oxygen Delivery Me thod 01/10/25 18:30 01/10/25 18:31 Temperature Pulse Rate 67 67 Pulse Rate [Pulse Oximeter] Respiratory Rate 12 11 L Blood Pressure 138/79 Blood Pressure [Ri ght Upper Arm] Pulse Oximetry 100 99 Oxygen Delivery Me thod Course Vital Signs Vital signs: Initial Vital Signs Temperature 97.1 F L 01/10/25 13:17 Temperature Source Temporal Artery Scan 01/10/25 13:17 Pulse Rate 63 01/10/25 13:17 Respiratory Rate 14 01/10/25 13:17 Blood Pressure 113/77 01/10/25 13:17 Blood Pressure Mean 89 01/10/25 13:17 Blood Pressure Position Semi-Fowlers 01/10/25 13:17 Oxygen Delivery Method Room Air 01/10/25 13:17 Vital Signs Temperature 97.1 F L 01/10/25 13:17 Pulse Rate 63 01/10/25 13:17 Respiratory Rate 14 01/10/25 13:17 Blood Pressure 113/77 01/10/25 13:17 Oxygen Delivery Method Room Air 01/10/25 13:17 Temperature 97.1 F L 01/10/25 13:17 Pulse Rate 67 01/10/25 18:31 Respiratory Rate 11 L 01/10/25 18:31 Blood Pressure 138/79 01/10/25 18:31 Pulse Oximetry 99 01/10/25 18:31 Oxygen Delivery Method Room Air 01/10/25 13:17 Medications Administered Medications: Discontinued Medications Generic Name Dose Route Start Last Admin Trade Name Juve PRN Reason Stop Dose Admin Lactated Ringer's 1,000 mls @ 1,000 mls/hr 01/10/25 14:00 01/10/25 16:40 Lactated Ringers 1000 Ml IV 01/10/25 14:59 Infused .Q1H ONE Infusion Lactated Ringer's 1,000 mls @ 1,000 mls/hr 01/10/25 16:32 01/10/25 18:01 Lactated Ringers 1000 Ml IV 01/10/25 17:31 Infused .Q1H ONE Infusion MDM - Weakness MDM Narrative Medical decision making narrative: Patient is an 84-year-old male presenting to the emergency department for weak ness, diarrhea, dehydration. He very well could be dehydrated from his diarrhea caused by the medications. Will give him a L of fluids. Will also order a CBC, CMP, urinalysis, EKG, troponin, magnesium. Lab work returns with a not concerning CBC. His CMP returns with a total bilirubin of 3.1 an AST distal very mildly elevated at 36. His creatinine is 2.0. His creatinine and back in 12/18/2019 was 1.68. The slightly increases likely secondary to dehydration. Urinalysis shows no concerning signs. His troponin is 0.22. 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 Does see his cellulose insulation helper every 6 months. I did speak to his psychologist to see if the medication he is on could be causing the elevated troponin. He does not believe it is but does state the patient can stop the medication until there follow-up visit next week. I then spoke to the on-call cellulose insulation helper for the patient's cardiology group about the elevated troponin. He cannot say for certain if it is acute ischemia but does think it will be unlikely to be persistent elevated troponin. They have no troponins to compare it to. I described to him the EKG done here and he states that does sound similar to the 1 they have on file. I am unable to view there EKGs. Repeat troponin was unchanged at 0.21. I did speak to Tuesday if you have interest in being transferred for a heart catheterization the says he would be open to it if it is recommended. I spoke to the on-call cellulose insulation helper at [facility]. Weight agreement this seems unlikely to be an acute cardiac event considering troponin is unchanged. He does recommend that the patient be on blood thinners due to his AFib. I spoke to the patient his daughter about this and they states he is not currently on blood thinners due to his chemo drug he is currently on. They state his previous cellulose insulation helper and his oncologist did have a conversation about this. At this time patient and his daughter feels safe for discharge. Seems reasonable to discharge them at this time. Lab Data Labs: Lab Results 01/10/25 01/10/25 01/10/25 Range/Units 14:26 15:15 16:14 WBC 5.65 (4.50-11.00) K/uL RBC 3.92 L (4.30-5.90) m/uL Hgb 11.2 L (13.5-17.5) gm/dL Hct 35.3 L (37.0-53.0) % MCV 90 (80-100) fL MCH 29 (26-34) pg MCHC 32 (32-36) gm/dL RDW Coeff of Gerri 16.2 H (11.5-15.5) % Plt Count 147 (140-440) K/uL Neut % (Auto) 63.5 (42.0-72.0) % Lymph % (Auto) 17.7 L (20-44) % Mclean % (Auto) 14.3 H (0.0-11.0) % Eos % (Auto) 3.4 (0.0-7.0) % Baso % (Auto) 1.1 (0.0-3.0) % Neut # (Auto) 3.59 (1.7-7.0) K/uL Lymph # (Auto) 1.00 (0.90-2.90) K/uL Mclean # (Auto) 0.80 (0.00-0.90) K/UL Eos # (Auto) 0.19 (0.00-0.50) K/uL Baso # (Auto) 0.06 (0.00-0.30) K/uL Abs Immat Gran (auto) 0.00 (0.00-0.30) K/uL Imm/Tot Granulo (auto) 0.0 % Sodium 137 (135-149) mmol/L Potassium 4.2 (3.6-5.1) mmol/L Chloride 102 (96-114) mmol/L Carbon Dioxide 28 (20-32) mmol/L Anion Gap 7 (7-15) mEq/L BUN 16 (7-30) mg/dL Creatinine 2.0 H (0.5-1.5) mg/dL Estimated Creat Clear 27.72 Estimated GFR 32 ml/min Glucose 85 (60-115) mg/dL Calcium 9.4 (8.4-10.6) mg/dL Magnesium 2.1 (1.5-2.6) mg/dL Total Bilirubin 3.1 H (0.1-1.5) mg/dL Direct Bilirubin 0.5 (0.0-0.5) mg/dL AST 36 H (12-35) U/L ALT 21 (4-50) U/L Alkaline Phosphatase 92 (40-150) U/L Troponin I 0.22 H* (0.01-0.04) ng/mL Total Protein 6.5 (6.0-8.3) g/dL Albumin 3.5 (3.3-5.0) g/dL Urine Color Yellow (Yellow) Urine Appearance Clear (Clear) Urine pH 7.0 (5.0-8.5) Ur Specific [place] 1.010 (1.000-1.030) Urine Protein Negative (Negative) Urine Glucose (UA) Negative (Negative) Urine Ketones Negative (Negative) Urine Blood Negative (Negative) Urine Nitrite Negative (Negative) Urine Bilirubin Negative (Negative) Urine Urobilinogen 0.2 (0.2-1.0) Ur Leukocyte Esterase Negative (Negative) Urine RBC 0-2 (0-2) Urine WBC 0-2 (0-5) Ur Squamous Epith Cells None (None-Few) Urine Bacteria None (None) Lab Acknowledgement Test Added 01/10/25 Range/Units 16:58 WBC (4.50-11.00) K/uL RBC (4.30-5.90) m/uL Hgb (13.5-17.5) gm/dL Hct (37.0-53.0) % MCV (80-100) fL MCH (26-34) pg MCHC (32-36) gm/dL RDW Coeff of Gerri (11.5-15.5) % Plt Count (140-440) K/uL Neut % (Auto) (42.0-72.0) % Lymph % (Auto) (20-44) % Mclean % (Auto) (0.0-11.0) % Eos % (Auto) (0.0-7.0) % Baso % (Auto) (0.0-3.0) % Neut # (Auto) (1.7-7.0) K/uL Lymph # (Auto) (0.90-2.90) K/uL Mclean # (Auto) (0.00-0.90) K/UL Eos # (Auto) (0.00-0.50) K/uL Baso # (Auto) (0.00-0.30) K/uL Abs Immat Gran (auto) (0.00-0.30) K/uL Imm/Tot Granulo (auto) % Sodium 137 (135-149) mmol/L Potassium 4.2 (3.6-5.1) mmol/L Chloride 104 (96-114) mmol/L Carbon Dioxide 26 (20-32) mmol/L Anion Gap 7 (7-15) mEq/L BUN 16 (7-30) mg/dL Creatinine 1.9 H (0.5-1.5) mg/dL Estimated Creat Clear 29.18 Estimated GFR 34 ml/min Glucose 73 (60-115) mg/dL Calcium 9.2 (8.4-10.6) mg/dL Magnesium (1.5-2.6) mg/dL Total Bilirubin (0.1-1.5) mg/dL Direct Bilirubin (0.0-0.5) mg/dL AST (12-35) U/L ALT (4-50) U/L Alkaline Phosphatase (40-150) U/L Troponin I 0.21 H* (0.01-0.04) ng/mL Total Protein (6.0-8.3) g/dL Albumin (3.3-5.0) g/dL Urine Color (Yellow) Urine Appearance (Clear) Urine pH (5.0-8.5) Ur Specific [place] (1.000-1.030) Urine Protein (Negative) Urine Glucose (UA) (Negative) Urine Ketones (Negative) Urine Blood (Negative) Urine Nitrite (Negative) Urine Bilirubin (Negative) Urine Urobilinogen (0.2-1.0) Ur Leukocyte Esterase (Negative) Urine RBC (0-2) Urine WBC (0-5) Ur Squamous Epith Cells (None-Few) Urine Bacteria (None) Lab Acknowledgement ECG Data Attestation: I personally reviewed and interpreted this ECG as follows: Prior ECG tracings: not available for review Interpretation: AFib with a rate of 64 beats per minute, right bundle branch block, T-wave inversions in lateral leads, no ST abnormalities. Discharge Plan Discharge Clinical Impression: Elevated troponin Fatigue Qualifiers: Fatigue type: unspecified Qualified Code(s): R53.83 - Other fatigue Diarrhea Qualifiers: Diarrhea type: unspecified type Qualified Code(s): R19.7 - Diarrhea, unspecified Patient Disposition: Home, Self-Care Condition: Stable Instructions: Fatigue (ED) Additional Instructions: I spoke to the oncologist who recommends to stop your brukinsa until you follow- up with him next week. I did speak to [facility] who was unsure why your not on blood thinners for your AFib I do recommend you talk to your cellulose insulation helper and/or oncologist about that also. If you developed any chest pain at all please return to ED for re-evaluation. Also return for any other new or worsening symptoms. Prescriptions: No Action Brukinsa 80 mg capsule 160 mg PO DAILY atorvastatin 80 mg tablet 80 mg PO DAILY Follow Up/Referrals: Provider,Not a Local [Non-Staff, Family Practice] Stand Alone Forms: Angle Info Instructions
[2025-01-10 14:49] LABS: Alanine Aminotransferase* 21 U/L (4-50); Alkaline Phosphatase* 92 U/L (40-150); Anion Gap 7 mEq/L (7-15); Aspartate Amino Transferase* 36 U/L (12-35); Bilirubin Total* 3.1 mg/dL (0.1-1.5); Blood Urea Nitrogen* 16 mg/dL (7-30); Calcium* 9.4 mg/dL (8.4-10.6); Carbon Dioxide* 28 mmol/L (20-32); Creatinine* 2.0 mg/dL (0.5-1.5); Est. Creatinine Clearance* 27.72; Estimated Glomerular Filt Rate 32 ml/min; Glucose* 85 mg/dL (60-115); Total Protein* 6.5 g/dL (6.0-8.3)
[2025-01-10 15:18] LABS: Appearance Urine Clear (Clear)
[2025-01-10 16:37] LABS: Bilirubin Direct* 0.5 mg/dL (0.0-0.5)
[2025-01-10 17:34] LABS: Chloride* 104 mmol/L (96-114); Sodium* 137 mmol/L (135-149)
[2025-01-10 17:35] LABS: Potassium* 4.2 mmol/L (3.6-5.1)
[2025-01-10 17:37] LABS: Blood Urea Nitrogen* 16 mg/dL (7-30); Creatinine* 1.9 mg/dL (0.5-1.5); Est. Creatinine Clearance* 29.18; Estimated Glomerular Filt Rate 34 ml/min
[2025-01-10 17:38] LABS: Anion Gap 7 mEq/L (7-15); Calcium* 9.2 mg/dL (8.4-10.6); Carbon Dioxide* 26 mmol/L (20-32); Glucose* 73 mg/dL (60-115)
== END 2025-01-10 19:00 | disposition home or self-care (01) ==
PROVIDERS: Emergency Provider Student in an Organized Health Care Education/Training Program; PCP Family Medicine
DX: R53.1 Weakness (principal); R53.83 Other fatigue; R19.7 Diarrhea, unspecified
CPT/HCPCS: 36415; 80048; 80053; 81001; 82248; 83735; 84484; 85025; 87493; 93005; 99283; 99284; 99285; J7120